=== PATIENT | female | born 1975 | race Caucasian/White ===

== ENCOUNTER 2016-09-11 11:05 | Emergency (ER) | payer OTHER | END 2016-09-11 13:22 | disposition home or self-care (01) | LOC: ED 11:05 | DX: R10.9 Unspecified abdominal pain (principal); I10 Essential (primary) hypertension; E11.9 Type 2 diabetes mellitus without complications; Z79.84 Long term (current) use of oral hypoglycemic drugs; T36.4X5A Adverse effect of tetracyclines, initial encounter; Y92.9 Unspecified place or not applicable ==